=== PATIENT | female | born 1955 | race Two or more races ===

== ENCOUNTER 2023-07-29 00:37 | Inpatient (IN) | payer OTHER ==
[~2023-07-29] VITALS: Ht 160 cm; Wt 76.0 kg
[2023-07-29] VITALS (8 sets, daily range): BP systolic 108–135; BP diastolic 59–69; PULSE 68–103; RESP 16–18; TEMP 97.4–98.3; O2SAT 93–96
[2023-07-29] MEDS ORDERED: DEXTROSE (50%) 50ML SYRG IV PRN (02:15)
[2023-07-29] MEDS ORDERED: ONDANSETRON HCL 4 MG/2 ML VIAL IV PRN (02:15)
[2023-07-29] MEDS ORDERED: hydrALAZINE HCL 20 MG/ML VL IV PRN (02:15)
[2023-07-29] MEDS ORDERED: HYDROcodone-ACET 5/325MG TAB PO PRN (02:15)
[2023-07-29] MEDS: ACETAMINOPHEN 325 MG TAB PO PRN ×2 (04:57→12:20)
[2023-07-29] MEDS ORDERED: ALPRAZolam 0.5 MG TAB PO ONE (05:30)
[2023-07-29] MEDS ORDERED: BUPR200T2 PO (05:33)
[2023-07-29] MEDS ORDERED: LEV75T PO (05:33)
[2023-07-29] MEDS ORDERED: ATO40T PO (05:34)
[2023-07-29] MEDS ORDERED: PREG50CA PO (05:35)
[2023-07-29] MEDS ORDERED: ALPR0.5T PO (05:36)
[2023-07-29] MEDS ORDERED: TRAZ-227 PO (05:37)
[2023-07-29] MEDS ORDERED: HYDR25TA5 PO (05:39)
[2023-07-29] MEDS ORDERED: RAMI10CA38 PO (05:40)
[2023-07-29 06:28] LABS: Chloride 103 mmol/L (98-107); Potassium 3.4 mmol/L (3.5-5.1); Sodium 139 mmol/L (136-145)
[2023-07-29 06:29] LABS: Anion Gap 11 (5-15); Calcium 10.3 mg/dL (8.5-10.1); Carbon Dioxide 25 mmol/L (20-30)
[2023-07-29 06:34] LABS: BUN/Creatinine Ratio 10.2 (10.0-20.0); Blood Urea Nitrogen 14 mg/dL (9-23); Glucose 89 mg/dL (74-106)
[2023-07-29] MEDS: ACCU-CHEK COMFORT CURVE STRIP VI SCH ×4 (06:36→21:37)
[2023-07-29] MEDS: InsuLIN REG 1unit/0.01ml Soln (100units/ml) SC SCH ×4 (06:37→22:00)
[2023-07-29] MEDS: LEVOTHYROXINE SODIUM 50 MCG TAB PO SCH (06:41)
[2023-07-29] MEDS ORDERED: PREGABALIN 25 MG CAP PO ONE (10:00)
[2023-07-29] MEDS: hydroCHLOROthiazide 25 MG TAB PO SCH (10:00)
[2023-07-29] MEDS ORDERED: PANTOPRAZOLE 40 MG/10 ML VIAL INJ IV SCH (10:00)
[2023-07-29] MEDS: buPROPion HCL 75 MG TAB PO SCH (10:28)
[2023-07-29] MEDS: RAMIPRIL 10 MG CAP PO SCH (10:41)
[2023-07-29] MEDS: GABAPENTIN 300 MG CAP PO SCH ×2 (14:00→21:38)
[2023-07-29] MEDS: KETOROLAC TROMETH 30 MG/ML 1ML VIAL IV PRN ×2 (15:43→21:37)
[2023-07-29 18:42] LABS: Erythrocyte Sedimentation Rate 12 mm/hr (0-20)
[2023-07-29] MEDS: methylPREDNISolone SOD SUCC 40 MG/ML VL IV SCH (21:37)
[2023-07-29] MEDS: traZODone HCL 50 MG TAB PO SCH (21:37)
[2023-07-29] MEDS: ATORVASTATIN 20 MG TAB PO SCH (21:37)
[2023-07-30] VITALS (7 sets, daily range): BP systolic 101–127; BP diastolic 55–76; PULSE 65–107; RESP 18–20; TEMP 98.2–98.5; O2SAT 93–99
[2023-07-30] MEDS: KETOROLAC TROMETH 30 MG/ML 1ML VIAL IV PRN ×3 (05:25→17:30)
[2023-07-30] MEDS: GABAPENTIN 300 MG CAP PO SCH ×2 (05:54→13:23)
[2023-07-30] MEDS: LEVOTHYROXINE SODIUM 50 MCG TAB PO SCH ×2 (05:54→06:02)
[2023-07-30] MEDS: InsuLIN REG 1unit/0.01ml Soln (100units/ml) SC SCH ×4 (06:01→21:53)
[2023-07-30 06:26] LABS: Alanine Aminotransferase 22 U/L (7-40); Albumin 4.3 g/dL (3.2-4.8); Alkaline Phosphatase 63 U/L (46-116); Anion Gap 10 (5-15); Aspartate Aminotransferase 21 U/L (13-40); BUN/Creatinine Ratio 13.1 (10.0-20.0); Blood Urea Nitrogen 18 mg/dL (9-23); Calcium 9.9 mg/dL (8.7-10.4); Carbon Dioxide 22 mmol/L (20-30); Chloride 106 mmol/L (98-107); Glucose 128 mg/dL (74-106); Sodium 138 mmol/L (136-145)
[2023-07-30 06:27] LABS: Bilirubin, Total 0.6 mg/dL (0.2-1.0); Creatine Kinase IFCC 92 U/L (34-145); Total Protein 6.5 g/dL (5.7-8.2)
[2023-07-30] MEDS: ACCU-CHEK COMFORT CURVE STRIP VI SCH ×4 (06:48→21:52)
[2023-07-30 06:53] LABS: Basophils # (auto) 0 10 ^3/uL (0-0.2); Basophils % (auto) 0.1 % (0.0-2.0); Eosinophils # (auto) 0 10 ^3/uL (0-0.8); Hematocrit 37.8 % (36.0-46.0); Hemoglobin 12.7 g/dL (12.2-16.2); Lymphocytes % (auto) 13.1 % (10.0-50.0); Mean Corpuscular Hemoglobin 33.3 pg (28.0-32.0); Mean Corpuscular Hgb Conc. 33.5 g/dL (32.0-36.0); Mean Corpuscular Volume 99.3 fL (80.0-100.0); Monocytes # (auto) 0.2 10 ^3/uL (0-1.3); Monocytes % (auto) 2.8 % (0.0-12.0); Neutrophils # (auto) 6.6 10 ^3/uL (1.6-8.6); Red Blood Cells 3.81 10^6/uL (4.0-5.20); Red Cell Distribution Width 13.4 % (11.8-14.3); White Blood Cell 7.8 10^3/uL (4.4-10.8)
[2023-07-30] MEDS ORDERED: PANT40TA57 PO (09:52)
[2023-07-30] MEDS: hydroCHLOROthiazide 25 MG TAB PO SCH (09:55)
[2023-07-30] MEDS: RAMIPRIL 10 MG CAP PO SCH (09:55)
[2023-07-30] MEDS: buPROPion HCL 75 MG TAB PO SCH (09:56)
[2023-07-30] MEDS: methylPREDNISolone SOD SUCC 40 MG/ML VL IV SCH (09:56)
[2023-07-30] MEDS: SOD CHL 0.45% 1,000 ML IV SCH (17:35)
[2023-07-30] MEDS: PREGABALIN 25 MG CAP PO SCH (21:46)
[2023-07-30] MEDS: ALPRAZolam 0.25 MG TAB PO SCH (21:46)
[2023-07-30] MEDS: ATORVASTATIN 20 MG TAB PO SCH (21:46)
[2023-07-30] MEDS: CYCLOBENZAPRINE HCL 10 MG TAB PO SCH (21:47)
[2023-07-30] MEDS: traZODone HCL 50 MG TAB PO SCH (21:47)
[2023-07-31] VITALS (7 sets, daily range): BP systolic 104–115; BP diastolic 46–69; PULSE 62–87; RESP 16–21; TEMP 97.5–98.8; O2SAT 95–100
[2023-07-31] MEDS: ACETAMINOPHEN 325 MG TAB PO PRN (03:20)
[2023-07-31] MEDS: SOD CHL 0.45% 1,000 ML IV SCH ×2 (04:35→17:32)
[2023-07-31] MEDS: KETOROLAC TROMETH 30 MG/ML 1ML VIAL IV PRN ×2 (04:41→17:30)
[2023-07-31] MEDS: CYCLOBENZAPRINE HCL 10 MG TAB PO SCH ×3 (05:42→21:44)
[2023-07-31] MEDS: ALPRAZolam 0.25 MG TAB PO SCH ×3 (05:42→21:43)
[2023-07-31] MEDS: LEVOTHYROXINE SODIUM 50 MCG TAB PO SCH (06:03)
[2023-07-31] MEDS: ACCU-CHEK COMFORT CURVE STRIP VI SCH ×4 (06:04→21:43)
[2023-07-31] MEDS: InsuLIN REG 1unit/0.01ml Soln (100units/ml) SC SCH ×4 (06:05→21:55)
[2023-07-31 06:51] LABS: Anion Gap 10 (5-15); Calcium 9.4 mg/dL (8.7-10.4); Carbon Dioxide 21 mmol/L (20-30); Chloride 108 mmol/L (98-107); Potassium 3.6 mmol/L (3.5-5.1); Sodium 139 mmol/L (136-145)
[2023-07-31 06:57] LABS: Blood Urea Nitrogen 20 mg/dL (9-23); Glucose 93 mg/dL (74-106)
[2023-07-31] MEDS: RAMIPRIL 10 MG CAP PO SCH (09:43)
[2023-07-31] MEDS: buPROPion HCL 75 MG TAB PO SCH (09:43)
[2023-07-31] MEDS: PREGABALIN 25 MG CAP PO SCH ×2 (09:43→21:44)
[2023-07-31] MEDS: PANTOPRAZOLE 40 MG TAB PO SCH (09:43)
[2023-07-31] MEDS: hydroCHLOROthiazide 25 MG TAB PO SCH (09:44)
[2023-07-31] MEDS ORDERED: LIDOCAINE 5% TOPICAL PATCH TOP ONE (13:00)
[2023-07-31] MEDS: ATORVASTATIN 20 MG TAB PO SCH (21:43)
[2023-07-31] MEDS: traZODone HCL 50 MG TAB PO SCH (21:44)
[2023-08-01] VITALS (7 sets, daily range): BP systolic 102–127; BP diastolic 49–75; PULSE 68–88; RESP 16–20; TEMP 97.7–98.2; O2SAT 93–96
[2023-08-01] MEDS: KETOROLAC TROMETH 30 MG/ML 1ML VIAL IV PRN ×3 (03:35→21:59)
[2023-08-01] MEDS: SOD CHL 0.45% 1,000 ML IV SCH ×2 (03:39→16:52)
[2023-08-01] MEDS: CYCLOBENZAPRINE HCL 10 MG TAB PO SCH ×3 (05:24→22:09)
[2023-08-01] MEDS: ALPRAZolam 0.25 MG TAB PO SCH ×3 (05:24→21:58)
[2023-08-01] MEDS: LEVOTHYROXINE SODIUM 50 MCG TAB PO SCH (06:09)
[2023-08-01] MEDS: ACCU-CHEK COMFORT CURVE STRIP VI SCH ×4 (06:11→21:59)
[2023-08-01] MEDS: InsuLIN REG 1unit/0.01ml Soln (100units/ml) SC SCH ×4 (06:12→21:59)
[2023-08-01] MEDS: buPROPion HCL 75 MG TAB PO SCH (09:37)
[2023-08-01] MEDS: PREGABALIN 25 MG CAP PO SCH ×2 (09:37→21:58)
[2023-08-01] MEDS: PANTOPRAZOLE 40 MG TAB PO SCH (09:37)
[2023-08-01] MEDS: RAMIPRIL 10 MG CAP PO SCH (09:38)
[2023-08-01] MEDS: LIDOCAINE 5% TOPICAL PATCH TOP SCH (09:38)
[2023-08-01] MEDS: hydroCHLOROthiazide 25 MG TAB PO SCH (09:38)
[2023-08-01] MEDS: METHOCARBAMOL 500 MG TAB PO PRN (18:50)
[2023-08-01] MEDS: traZODone HCL 50 MG TAB PO SCH (21:55)
[2023-08-01] MEDS: ATORVASTATIN 20 MG TAB PO SCH (21:58)
[2023-08-02 05:00] VITALS: BP 117/67; PULSE 79; RESP 0; TEMP 97.8; O2SAT 94
[2023-08-02] MEDS: ALPRAZolam 0.25 MG TAB PO SCH ×2 (05:35→13:55)
[2023-08-02] MEDS: CYCLOBENZAPRINE HCL 10 MG TAB PO SCH ×2 (05:35→13:55)
[2023-08-02] MEDS: LEVOTHYROXINE SODIUM 50 MCG TAB PO SCH (06:23)
[2023-08-02] MEDS: ACCU-CHEK COMFORT CURVE STRIP VI SCH ×3 (06:23→17:00)
[2023-08-02] MEDS: InsuLIN REG 1unit/0.01ml Soln (100units/ml) SC SCH ×3 (06:27→17:00)
[2023-08-02 07:38] LABS: Basophils # (auto) 0.1 10 ^3/uL (0-0.2); Basophils % (auto) 0.7 % (0.0-2.0); Eosinophils # (auto) 0.4 10 ^3/uL (0-0.8); Eosinophils % (auto) 3.5 % (0.0-7.0); Hematocrit 34.9 % (36.0-46.0); Hemoglobin 11.7 g/dL (12.2-16.2); Lymphocytes # (auto) 3.2 10 ^3/uL (0.4-5.4); Lymphocytes % (auto) 30.6 % (10.0-50.0); Mean Corpuscular Hemoglobin 33.8 pg (28.0-32.0); Mean Corpuscular Hgb Conc. 33.6 g/dL (32.0-36.0); Mean Corpuscular Volume 100.5 fL (80.0-100.0); Monocytes # (auto) 0.7 10 ^3/uL (0-1.3); Monocytes % (auto) 7.1 % (0.0-12.0); Neutrophils % (auto) 58.1 % (37.0-80.0); Nucleated Red Blood Cells % 0.2 %; Red Blood Cells 3.47 10^6/uL (4.0-5.20); Red Cell Distribution Width 13.4 % (11.8-14.3); White Blood Cell 10.3 10^3/uL (4.4-10.8)
[2023-08-02 07:49] LABS: Alanine Aminotransferase 22 U/L (7-40); Albumin 3.4 g/dL (3.2-4.8); Alkaline Phosphatase 52 U/L (46-116); Anion Gap 8 (5-15); BUN/Creatinine Ratio 10.8 (10.0-20.0); Blood Urea Nitrogen 14 mg/dL (9-23); Carbon Dioxide 21 mmol/L (20-30); Chloride 111 mmol/L (98-107); Glucose 83 mg/dL (74-106); Sodium 140 mmol/L (136-145)
[2023-08-02 07:50] LABS: Aspartate Aminotransferase 19 U/L (13-40)
[2023-08-02 07:51] LABS: Bilirubin, Total 0.2 mg/dL (0.2-1.0); Total Protein 5.3 g/dL (5.7-8.2)
[2023-08-02 07:53] VITALS: PULSE 76
[2023-08-02 09:00] VITALS: BP 113/59; PULSE 68; RESP 19; TEMP 97.9; O2SAT 95
[2023-08-02] MEDS: PANTOPRAZOLE 40 MG TAB PO SCH (09:56)
[2023-08-02] MEDS: PREGABALIN 25 MG CAP PO SCH (09:56)
[2023-08-02] MEDS: hydroCHLOROthiazide 25 MG TAB PO SCH (09:57)
[2023-08-02] MEDS: buPROPion HCL 75 MG TAB PO SCH (09:57)
[2023-08-02] MEDS: LIDOCAINE 5% TOPICAL PATCH TOP SCH (09:57)
[2023-08-02] MEDS ORDERED: DULoxetine HCL 30 MG CAP PO SCH (10:00)
[2023-08-02] MEDS ORDERED: LISINOPRIL 20 MG TAB PO SCH (10:02)
[2023-08-02] MEDS: KETOROLAC TROMETH 30 MG/ML 1ML VIAL IV PRN (12:27)
[2023-08-02 13:00] VITALS: BP 116/79; PULSE 70; RESP 18; TEMP 98.1; O2SAT 96
[2023-08-02] MEDS ORDERED: PREG50CA PO (14:47)
[2023-08-02] MEDS ORDERED: IBUP-1454 PO (14:48)
[2023-08-02] MEDS ORDERED: CYCL-837 PO (14:48)
[2023-08-02] MEDS ORDERED: LIDO5DIS21 TOP (14:48)
[2023-08-02] MEDS ORDERED: DULO-141 PO (14:48)
[2023-08-02 17:00] VITALS: BP 133/80; PULSE 87; RESP 18; TEMP 98; O2SAT 95
[2023-08-02] MEDS: METHOCARBAMOL 500 MG TAB PO PRN (17:10)
== END 2023-08-02 17:18 | disposition home or self-care (01) | DRG 552 ==
LOC: TELE-WESTW 02:55
PROVIDERS: ADMIT Hospitalist; ATTEND Hospitalist
DX: M47.816 Spondylosis without myelopathy or radiculopathy, lumbar region (principal); F33.2 Major depressive disorder, recurrent severe without psychotic features; F41.9 Anxiety disorder, unspecified; I12.9 Hypertensive chronic kidney disease with stage 1 through stage 4 chronic kidney disease, or unspecified chronic kidney disease; E11.40 Type 2 diabetes mellitus with diabetic neuropathy, unspecified; G35 Multiple sclerosis; E11.22 Type 2 diabetes mellitus with diabetic chronic kidney disease; N18.9 Chronic kidney disease, unspecified; E03.9 Hypothyroidism, unspecified; G89.29 Other chronic pain; Z87.442 Personal history of urinary calculi; Z90.710 Acquired absence of both cervix and uterus; Z82.49 Family history of ischemic heart disease and other diseases of the circulatory system; Z82.3 Family history of stroke; Z79.84 Long term (current) use of oral hypoglycemic drugs; Z88.8 Allergy status to other drugs, medicaments and biological substances
CPT/HCPCS: 36415; 72100; 72148; 73502; 76700; 80048; 80053; 82550; 82962; 84443; 85025; 85652; 86141; 87040; 87081; 97110; 97116; 97163; 97530; C9113; G0378; J1815; J1885; J2405

== ENCOUNTER 2024-03-05 15:44 | Emergency (ER) | payer OTHER ==
[~2024-03-05] VITALS: Ht 160 cm; Wt 64.9 kg
[~2024-03-05 15:44] MED LIST: ALPR0.5T PO; ATOR-507 PO; BUPR200T2 PO; CYCL-837 PO; DULO-141 PO; HYDR25TA5 PO; IBUP-1454 PO; LEV75T PO; LIDO5DIS21 TOP; PANT40TA57 PO; PREG50CA PO; RAMI10CA38 PO; TRAZ-227 PO
[2024-03-05 16:54] LABS: Basophils # (auto) 0 10 ^3/uL (0-0.2); Basophils % (auto) 0.4 % (0.0-2.0); Eosinophils # (auto) 0.2 10 ^3/uL (0-0.8); Eosinophils % (auto) 1.8 % (0.0-7.0); Hematocrit 41.7 % (36.0-46.0); Hemoglobin 14.2 g/dL (12.2-16.2); Lymphocytes # (auto) 2.6 10 ^3/uL (0.4-5.4); Lymphocytes % (auto) 28.3 % (10.0-50.0); Mean Corpuscular Hemoglobin 33.4 pg (28.0-32.0); Mean Corpuscular Volume 98.2 fL (80.0-100.0); Monocytes # (auto) 0.6 10 ^3/uL (0-1.3); Monocytes % (auto) 7.2 % (0.0-12.0); Neutrophils # (auto) 5.6 10 ^3/uL (1.6-8.6); Neutrophils % (auto) 62.3 % (37.0-80.0); Red Blood Cells 4.25 10^6/uL (4.0-5.20)
[2024-03-05 17:11] LABS: Alanine Aminotransferase 40 U/L (7-40); Albumin 4.8 g/dL (3.2-4.8); Alkaline Phosphatase 74 U/L (46-116); Anion Gap 10 (5-15); Aspartate Aminotransferase 26 U/L (13-40); BUN/Creatinine Ratio 18.2 (10.0-20.0); Bilirubin, Total 0.4 mg/dL (0.2-1.0); Blood Urea Nitrogen 28 mg/dL (9-23); Calcium 10.8 mg/dL (8.7-10.4); Carbon Dioxide 25 mmol/L (20-30); Chloride 106 mmol/L (98-107); Glucose 104 mg/dL (74-106); Lipase 44 U/L (12-53); Potassium 3.6 mmol/L (3.5-5.1); Sodium 141 mmol/L (136-145); Total Protein 7.6 g/dL (5.7-8.2)
[2024-03-05] MEDS: HYDROmorphone HCL 2 MG/ML VL/or syr IM ONE (17:32)
[2024-03-05 20:54] LABS: Urine Bacteria None Seen /hpf (None Seen)
[2024-03-05 21:28] LABS: Urine Blood Negative /uL (Negative); Urine Clarity Clear (Clear); Urine Color Light-Yellow (Yellow); Urine Protein, UAD Negative (Negative); Urine Specific Gravity 1.014 (1.001-1.035); Urine Urobilinogen Normal (Negative); Urine WBC 3 /hpf (0 - 5)
[2024-03-05 21:30] VITALS: BP 111/71; PULSE 91; RESP 12; TEMP 98.4; O2SAT 97
== END 2024-03-05 23:19 | disposition home or self-care (01) ==
LOC: ER 15:44
DX: N17.9 Acute kidney failure, unspecified (principal); R60.0 Localized edema; Z88.1 Allergy status to other antibiotic agents; Z88.6 Allergy status to analgesic agent
CPT/HCPCS: 36415; 71045; 80053; 81001; 83605; 83690; 83880; 84484; 85025; 96372; 99285; J1170